=== PATIENT | female | born 1980 | race Caucasian/White ===

== ENCOUNTER → 2016-09-27 | Outpatient (CLI) | payer OTHER ==
[~2016-09-27] MED LIST: ANAPROX DS550 MG PO; CIPROFLOXACIN500 MG PO; CLARITIN10 MG PO; COMPAZINE10 MG PO; FLAGYL500 MG PO; FLEXERIL10 MG PO; MOTRIN600 MG PO; MOTRIN800 MG PO; NKHM; PHENERGAN25 M1 PO; PREDNICOT20 MG PO; TRAMADOL HCL50 MG PO; ULTRAM50 MG PO; VALTREX500 MG PO; Vicodin 5/500 505 MG PO; ZITHROMAX Z PA250 MG PO; ZOFRAN ODT4 MG SL; ZOFRAN4 MG PO
== END | disposition home or self-care (01) ==
LOC: MAMMO 11:18
DX: Z12.31 Encounter for screening mammogram for malignant neoplasm of breast (principal); Z80.3 Family history of malignant neoplasm of breast

== ENCOUNTER 2018-10-31 16:52 | Emergency (ER) | payer SELFPAY ==
[~2018-10-31] VITALS: Ht 177.8 cm; Wt 108.9 kg
--- NOTE | ~2018-10-31 | EKG ---
[place], [place] ELECTROCARDIOGRAM REPORT NAME: DEVIKA GARZA UNIT #: [id number] ROOM: DOCTOR: EPIPHANY DRAFT REPORT BIRTHDATE: [birth year] [facility] Test Date: 2018-10-31 Test Time: 17:20:58 Pat Name: DEVIKA GARZA Department: Room: Gender: F Silk Spooler: Araseli Olivarez : 1980 Requested By: MAX LUQUE Order Number: [id number] Reading MD: Sarah Fry Measurements Intervals [place] Rate: 73 P: 9 [place]: 136 QRS: -1 QRSD: 96 T: 19 QT: 368 QTc: 406 Interpretive Statements Sinus rhythm Low voltage, precordial leads No previous ECG available for comparison Electronically Signed On 11-01-2018 9:05:59 PDT by Sarah Fry CM:EKGRPT:ELECTROCARDIOGRAM REPORT 1720 0905 MAX LUQUE EPIPHANY DRAFT REPORT MAX LUQUE
[2018-10-31 16:52] VITALS: BP 128/72
[2018-10-31 17:23] LABS: BASO % 0.5 % (0.0-1.0); EOS # 0.1 10*3/uL (0.0-0.4); HEMATOCRIT 38.2 % (37.0-47.0); LYMPH # 2.7 10*3/uL (1.3-4.4); LYMPH % 32.4 % (27.0-41.0); MEAN CELL VOLUME 83.8 fl (81.0-99.0); MEAN CORPUSCULAR HGB 26.3 pg (27.0-31.0); MEAN CORPUSCULAR HGB CONC 31.4 g/dl (33.0-37.0); MONO # 0.8 10*3/uL (0.1-1.0); MONO % 9.7 % (3.0-9.0); NEUT # 4.6 10*3/uL (2.3-7.9); PLATELET COUNT AUTOMATED 203 10*3/uL (130-400); RED BLOOD COUNT 4.56 10*6/uL (4.10-5.10); RED CELL DISTRI WIDTH 14.9 % (0-14.5); WHITE BLOOD COUNT 8.2 10*3/uL (4.8-10.8)
[2018-10-31 17:31] LABS: BILIRUBIN NEGATIVE (NEGATIVE); BLOOD NEGATIVE (NEGATIVE); CLARITY CLEAR (CLEAR); COLOR YELLOW (YELLOW); GLUCOSE NEGATIVE (NEGATIVE); KETONE NEGATIVE (NEGATIVE); LEUKO ESTERASE NEGATIVE (NEGATIVE); NITRITE NEGATIVE (NEGATIVE)
[2018-10-31 17:37] LABS: URINE AMPHETAMINES < 1000 (1000ng/ml); URINE BARBITURATES < 200 (200ng/ml); URINE BENZODIAZEPINES < 200 (200ng/ml); URINE CANNABINOIDS (THC) < 50 (50ng/ml); URINE COCAINE < 300 (300ng/ml); URINE METHADONE < 300 (300ng/ml); URINE OPIATES < 300 (300ng/ml)
[2018-10-31 17:38] LABS: BACTERIA 2+; MUCOUS TRACE; WBC 0-2 wbc/hpf (0-5)
[2018-10-31 17:41] LABS: ALBUMIN 3.4 gm/dl (3.1-4.5); ALKALINE PHOSPHATASE 50 U/L (45-117); BUN 10 mg/dl (7-24); CHLORIDE 110 mmol/L (98-107); CREATININE 0.67 mg/dL (0.55-1.02); LIPASE 70 U/L (73-393); POTASSIUM 3.9 mmol/L (3.5-5.1); SGOT/AST 13 IU/L (3-35); SGPT/ALT 20 U/L (12-78); SODIUM 138 mmol/L (136-145); TOTAL PROTEIN 6.8 gm/dL (6.4-8.2)
[2018-10-31 17:42] LABS: TROPONIN I < 0.015 ng/ml (<0.045)
[2018-10-31 17:42] LABS: URINE PHENCYCLIDINE < 25 (25ng/ml)
== END 2018-10-31 19:30 | disposition home or self-care (01) ==
LOC: ED 16:52
PROVIDERS: Nurse Practitioner Family
DX: R55 Syncope and collapse (principal); H53.8 Other visual disturbances; F17.200 Nicotine dependence, unspecified, uncomplicated

== ENCOUNTER 2019-11-15 18:40 | Emergency (ER) | payer OTHER ==
[~2019-11-15] VITALS: Wt 97.5 kg
[2019-11-15 18:56] VITALS: BP 120/67
[2019-11-15 19:34] LABS: BASO % 0.3 % (0.0-1.0); EOS # 0.1 10*3/uL (0.0-0.4); EOS % 0.6 % (1.0-4.0); HEMATOCRIT 40.8 % (37.0-47.0); LYMPH # 1.5 10*3/uL (1.3-4.4); LYMPH % 17.4 % (27.0-41.0); MEAN CELL VOLUME 89.5 fl (81.0-99.0); MEAN CORPUSCULAR HGB 27.9 pg (27.0-31.0); MEAN CORPUSCULAR HGB CONC 31.1 g/dl (33.0-37.0); MEAN PLATELET VOLUME 11.9 fl (9.6-12.3); MONO # 0.6 10*3/uL (0.1-1.0); MONO % 7.4 % (3.0-9.0); NEUT # 6.4 10*3/uL (2.3-7.9); NEUT % 74.1 % (47.0-73.0); PLATELET COUNT AUTOMATED 212 10*3/uL (130-400); RED BLOOD COUNT 4.56 10*6/uL (4.10-5.10); RED CELL DISTRI WIDTH 13.8 % (0-14.5); WHITE BLOOD COUNT 8.6 10*3/uL (4.8-10.8)
[2019-11-15 19:44] LABS: BILIRUBIN NEGATIVE (NEGATIVE); BLOOD NEGATIVE (NEGATIVE); CLARITY CLEAR (CLEAR); COLOR YELLOW (YELLOW); GLUCOSE NEGATIVE (NEGATIVE); KETONE NEGATIVE (NEGATIVE); SPECIFIC GRAVITY 1.015 (1.005-1.030)
[2019-11-15 19:46] LABS: LEUKO ESTERASE NEGATIVE (NEGATIVE); NITRITE NEGATIVE (NEGATIVE)
[2019-11-15 19:50] LABS: ALBUMIN 3.3 gm/dl (3.1-4.5); ALKALINE PHOSPHATASE 57 U/L (45-117); BUN 10 mg/dl (7-24); CHLORIDE 107 mmol/L (98-107); CREATININE 0.66 mg/dL (0.55-1.02); POTASSIUM 3.8 mmol/L (3.5-5.1); SGOT/AST 121 IU/L (3-35); SGPT/ALT 134 U/L (12-78); SODIUM 139 mmol/L (136-145); TOTAL PROTEIN 6.9 gm/dL (6.4-8.2)
[2019-11-15 19:55] LABS: BACTERIA 1+; EPITHELIAL CELLS 16-20; RBC 0-2 rbc/hpf (0-2); WBC 0-2 wbc/hpf (0-5)
[2019-11-15] MEDS ORDERED: CIPRO500 MG PO (21:53)
[2019-11-15] MEDS ORDERED: FLAGYL500 MG PO (21:53)
== END 2019-11-15 21:58 | disposition home or self-care (01) ==
LOC: ED 18:40
PROVIDERS: Nurse Practitioner
DX: K57.32 Diverticulitis of large intestine without perforation or abscess without bleeding (principal); N75.0 Cyst of Bartholin's gland; R94.5 Abnormal results of liver function studies; K72.90 Hepatic failure, unspecified without coma; Z15.01 Genetic susceptibility to malignant neoplasm of breast; N39.0 Urinary tract infection, site not specified; Z88.8 Allergy status to other drugs, medicaments and biological substances

== ENCOUNTER → 2019-12-10 | Outpatient (CLI) | payer OTHER ==
[~2019-12-10] MED LIST changes: +CIPRO500 MG PO
== END | disposition home or self-care (01) ==
LOC: US 15:27
PROVIDERS: ATTEND Nurse Practitioner
DX: D25.1 Intramural leiomyoma of uterus (principal); N83.291 Other ovarian cyst, right side; N32.89 Other specified disorders of bladder; D21.9 Benign neoplasm of connective and other soft tissue, unspecified

== ENCOUNTER → 2020-01-10 | Outpatient (CLI) | payer OTHER ==
[2020-01-10 11:39] LABS: BASO % 0.4 % (0.0-1.0); EOS # 0.1 10*3/uL (0.0-0.4); EOS % 1.4 % (1.0-4.0); HEMATOCRIT 36.7 % (37.0-47.0); LYMPH # 2.9 10*3/uL (1.3-4.4); MEAN CELL VOLUME 88.9 fl (81.0-99.0); MEAN CORPUSCULAR HGB 27.6 pg (27.0-31.0); MEAN CORPUSCULAR HGB CONC 31.1 g/dl (33.0-37.0); MEAN PLATELET VOLUME 10.8 fl (9.6-12.3); MONO # 0.7 10*3/uL (0.1-1.0); MONO % 8.6 % (3.0-9.0); NEUT # 4.7 10*3/uL (2.3-7.9); NEUT % 55.1 % (47.0-73.0); PLATELET COUNT AUTOMATED 214 10*3/uL (130-400); RED BLOOD COUNT 4.13 10*6/uL (4.10-5.10); RED CELL DISTRI WIDTH 13.6 % (0-14.5); WHITE BLOOD COUNT 8.5 10*3/uL (4.8-10.8)
[2020-01-10 12:05] LABS: ALBUMIN 3.3 gm/dl (3.1-4.5); ALKALINE PHOSPHATASE 46 U/L (45-117); BUN 9 mg/dl (7-24); CHLORIDE 111 mmol/L (98-107); CREATININE 0.54 mg/dL (0.55-1.02); POTASSIUM 3.7 mmol/L (3.5-5.1); SGOT/AST 14 IU/L (3-35); SGPT/ALT 30 U/L (12-78); SODIUM 140 mmol/L (136-145); TOTAL PROTEIN 6.4 gm/dL (6.4-8.2)
[2020-01-10 12:42] LABS: BILIRUBIN Negative (Negative); BLOOD Negative (Negative); CLARITY Clear (Clear); COLOR Yellow (Yellow); GLUCOSE Negative (Negative); KETONE Negative (Negative); LEUKO ESTERASE Negative (Negative); NITRITE Negative (Negative); SPECIFIC GRAVITY >= 1.030 (1.001-1.030); UROBILINOGEN 0.2 E.U./dl (0.0-1.0)
[2020-01-10 13:34] LABS: BACTERIA TRACE; MUCOUS 1+
== END | disposition home or self-care (01) ==
LOC: CT 01-03 10:00 → LAB 10:06
PROVIDERS: ATTEND Urology
DX: K42.9 Umbilical hernia without obstruction or gangrene (principal); R31.9 Hematuria, unspecified; Z90.49 Acquired absence of other specified parts of digestive tract

== ENCOUNTER → 2020-01-11 | Outpatient (CLI) | payer OTHER | END | disposition home or self-care (01) | LOC: LAB 00:25 | PROVIDERS: ATTEND Urology | DX: R31.9 Hematuria, unspecified (principal) ==

== ENCOUNTER → 2020-02-04 | Outpatient (CLI) | payer OTHER ==
[2020-02-04 16:07] LABS: BASO # 0.1 10*3/uL (0.0-0.1); BASO % 0.7 % (0.0-1.0); EOS # 0.1 10*3/uL (0.0-0.4); EOS % 0.9 % (1.0-4.0); HEMATOCRIT 39.2 % (37.0-47.0); LYMPH # 3.1 10*3/uL (1.3-4.4); LYMPH % 41.3 % (27.0-41.0); MEAN CELL VOLUME 88.1 fl (81.0-99.0); MEAN CORPUSCULAR HGB 27.6 pg (27.0-31.0); MEAN CORPUSCULAR HGB CONC 31.4 g/dl (33.0-37.0); MONO # 0.7 10*3/uL (0.1-1.0); MONO % 9.7 % (3.0-9.0); NEUT # 3.5 10*3/uL (2.3-7.9); PLATELET COUNT AUTOMATED 256 10*3/uL (130-400); RED BLOOD COUNT 4.45 10*6/uL (4.10-5.10); RED CELL DISTRI WIDTH 13.2 % (0-14.5); WHITE BLOOD COUNT 7.5 10*3/uL (4.8-10.8)
== END | disposition home or self-care (01) ==
LOC: LAB 15:00
PROVIDERS: ATTEND Obstetrics & Gynecology
DX: Z01.818 Encounter for other preprocedural examination (principal)

== ENCOUNTER → 2021-08-21 | Outpatient (CLI) | payer OTHER ==
[2021-08-21 09:15] LABS: BUN 12 mg/dl (7-24); CHLORIDE 106 mmol/L (98-107); SODIUM 138 mmol/L (136-145)
[2021-08-21 09:19] LABS: CHOLESTEROL 150 mg/dL (<200); CREATININE 0.59 mg/dL (0.55-1.02); LDL CHOLESTEROL 86 mg/dL (9-159); TRIGLYCERIDES 56 mg/dl (<150)
== END | disposition home or self-care (01) ==
LOC: LAB 08:26
PROVIDERS: ATTEND Family Medicine
DX: Z13.220 Encounter for screening for lipoid disorders (principal); Z13.1 Encounter for screening for diabetes mellitus

== ENCOUNTER → 2022-01-18 | Outpatient (CLI) | payer OTHER ==
[2022-01-19 08:09] LABS: RHEUMATOID FACTOR <10.0 IU/mL (<14.0)
[2022-01-20 20:07] LABS: CCP ANTIBODIES IGG/IGA 2 units (0-19)
== END | disposition home or self-care (01) ==
LOC: LAB 13:09
PROVIDERS: ATTEND Family Medicine
DX: M06.4 Inflammatory polyarthropathy (principal)

== ENCOUNTER 2022-03-06 02:23 | Observation (INO) | payer OTHER ==
[~2022-03-06] VITALS: Ht 172.7 cm; Wt 104.3 kg
[~2022-03-06 02:23] MED LIST changes: +HYDROCODONE-AC1 EAC1 PO; +METRONIDAZOLE500 M1 PO; +Percocet 325 MG1 TAB PO; +SENOKOT8.6 MG PO
[2022-03-06 02:39] VITALS: BP 134/49
[2022-03-06 04:05] LABS: HEMATOCRIT 34.4 % (37.0-47.0); MEAN CELL VOLUME 88.4 fl (81.0-99.0); MEAN CORPUSCULAR HGB 27.8 pg (27.0-31.0); MEAN CORPUSCULAR HGB CONC 31.4 g/dl (33.0-37.0); MEAN PLATELET VOLUME 9.9 fl (9.6-12.3); RED BLOOD COUNT 3.89 10*6/uL (4.10-5.10); RED CELL DISTRI WIDTH 13.5 % (0-14.5)
[2022-03-06 04:07] LABS: MANUAL DIFF REFLEX YES
[2022-03-06 04:10] LABS: PLATELET COUNT AUTOMATED 290 10*3/uL (130-400)
[2022-03-06 04:15] LABS: CHLORIDE 101 mmol/L (98-107); POTASSIUM 3.2 mmol/L (3.4-5.1); SODIUM 136 mmol/L (136-145)
[2022-03-06 04:23] LABS: ALKALINE PHOSPHATASE 104 U/L (46-116); CREATININE 0.44 mg/dL (0.55-1.02); LIPASE 25 U/L (12-53)
[2022-03-06 04:25] LABS: SGPT/ALT 49 U/L (10-49)
[2022-03-06 04:27] LABS: BUN < 5 mg/dl (9-23)
[2022-03-06 04:30] LABS: ATYPICAL LYMPHS 2 % (0-0); PLATELET SUFFICIENCY NORMAL (NORMAL); TOTAL CELLS COUNTED 100 #CELLS
[2022-03-06 05:44] LABS: BILIRUBIN Negative (Negative); BLOOD Negative (Negative); CLARITY Clear (Clear); COLOR Yellow (Yellow); GLUCOSE Negative (Negative); KETONE Negative (Negative); LEUKO ESTERASE Negative (Negative); NITRITE Negative (Negative); SPECIFIC GRAVITY <= 1.005 (1.001-1.030); UROBILINOGEN 0.2 E.U./dl (0.0-1.0)
[2022-03-06 05:55] LABS: RBC 0-2 rbc/hpf (0-2); WBC 0-2 wbc/hpf (0-5)
[2022-03-06 14:30] VITALS: BP 127/81
[2022-03-06 20:33] VITALS: BP 128/68
[2022-03-07 06:43] VITALS: BP 125/66
[2022-03-07 07:26] LABS: HEMATOCRIT 33.6 % (37.0-47.0); MEAN CELL VOLUME 87.7 fl (81.0-99.0); MEAN CORPUSCULAR HGB 28.5 pg (27.0-31.0); MEAN CORPUSCULAR HGB CONC 32.4 g/dl (33.0-37.0); MEAN PLATELET VOLUME 9.8 fl (9.6-12.3); PLATELET COUNT AUTOMATED 313 10*3/uL (130-400); RED BLOOD COUNT 3.83 10*6/uL (4.10-5.10); WHITE BLOOD COUNT 15.1 10*3/uL (4.8-10.8)
[2022-03-07 07:45] LABS: MANUAL DIFF REFLEX YES
[2022-03-07 07:48] LABS: ALKALINE PHOSPHATASE 93 U/L (46-116); BUN 6 mg/dl (9-23); CHLORIDE 105 mmol/L (98-107); CREATININE 0.43 mg/dL (0.55-1.02); POTASSIUM 3.7 mmol/L (3.4-5.1); SGPT/ALT 116 U/L (10-49); SODIUM 135 mmol/L (136-145)
[2022-03-07 07:49] LABS: TOTAL PROTEIN 5.3 gm/dL (6.0-8.0)
[2022-03-07 08:08] LABS: ATYPICAL LYMPHS 2 % (0-0); BASOPHILS 1 % (0-1); BURR CELLS FEW; PLATELET SUFFICIENCY NORMAL (NORMAL); POLYCHROMASIA SLIGHT; ROULEAUX SLIGHT; TOTAL CELLS COUNTED 100 #CELLS; TOXIC GRANULATION SLIGHT
[2022-03-07] MEDS ORDERED: Ondansetron4 MG PO (08:41)
== END 2022-03-07 09:17 | disposition home or self-care (01) ==
LOC: ED 02:23 → EDHOLD 06:02 → 4E 03-07 08:00 → EDHOLD 03-07 09:17
PROVIDERS: Emergency Medicine; Internal Medicine; ADMIT Internal Medicine; ATTEND Internal Medicine
DX: R10.9 Unspecified abdominal pain (principal); R11.2 Nausea with vomiting, unspecified; B99.9 Unspecified infectious disease; K91.89 Other postprocedural complications and disorders of digestive system; R74.01 Elevation of levels of liver transaminase levels; R73.9 Hyperglycemia, unspecified; E87.6 Hypokalemia; D64.9 Anemia, unspecified; Z79.899 Other long term (current) drug therapy; Z90.49 Acquired absence of other specified parts of digestive tract

== ENCOUNTER → 2023-08-25 | Outpatient (CLI) | payer OTHER ==
[~2023-08-25] MED LIST changes: +Ondansetron4 MG PO
[2023-08-25 09:27] LABS: BUN 11 mg/dl (9-23); CHLORIDE 104 mmol/L (98-107); CHOLESTEROL 168 mg/dL (<200); LDL CHOLESTEROL 101 mg/dL (9-159); POTASSIUM 3.8 mmol/L (3.4-5.1); TRIGLYCERIDES 77 mg/dl (<150)
== END | disposition home or self-care (01) ==
LOC: LAB 08:31
PROVIDERS: ATTEND Family Medicine
DX: Z13.1 Encounter for screening for diabetes mellitus (principal); Z13.220 Encounter for screening for lipoid disorders

== ENCOUNTER 2024-08-29 19:58 | Emergency (ER) | payer OTHER ==
[~2024-08-29] VITALS: Ht 177.8 cm; Wt 117.9 kg
[2024-08-29 20:16] VITALS: BP 137/84
== END 2024-08-29 20:36 | disposition home or self-care (01) ==
LOC: ED 19:58
DX: I83.891 Varicose veins of right lower extremity with other complications (principal); Z79.899 Other long term (current) drug therapy; Z90.49 Acquired absence of other specified parts of digestive tract; Z90.710 Acquired absence of both cervix and uterus; Z98.890 Other specified postprocedural states